=== PATIENT | male | born 1975 | race Caucasian/White ===

== ENCOUNTER 2016-10-03 00:48 | Emergency (ER) | payer SELFPAY ==
--- NOTE | ~2016-10-03 | ER ---
PATIENT'S NAME: ROSY IRAHETA [facility] AGE: 41 Y [address] ROOM: [place] [address] LOCATION: [facility] ADMIT DATE: 10/03/2016 ER/Outpatient Report DISCHARGE DATE: 10/03/2016 FAMILY PHYSICIAN: PHYSICIAN, NO ATTENDING PHYSICIAN: Kaela Lucia HISTORY OF PRESENT ILLNESS: A 41-year-old male who is right-hand dominant, who presents with left hand middle finger dislocation. He was seen at another hospital and was sent here for Dr. Dias for finger dislocation reduction. The patient says he has some tingling and some pain at the joint which is the PIP of the 3rd finger but no other complaints. He has intact sensation. He did this by tripping and he put his hand out to stop him and he sort of jammed it onto the patio railing. This happened about 3 hours ago. No other complaints at this time. PAST MEDICAL HISTORY: Includes hypertension. SURGICAL HISTORY: None. SOCIAL HISTORY: He smokes 4 ciggies a day. Occasional alcohol. No drug use. MEDICATIONS: None. ALLERGIES: NONE. REVIEW OF SYSTEMS: Reviewed by me and negative with the exception of those discussed in HPI. PHYSICAL EXAMINATION: VITAL SIGNS: The patient is 6 feet 1 inch, he weighs 137 kilograms, blood pressure 188/104, heart rate 100, respiratory rate 18, temperature is 99, sats are 96%. GENERAL: The patient is alert and oriented x4. He is in no acute distress. Well appearing. EXTREMITIES: His left wrist and left forearm was in a splint, so I removed it. His PIP, he is unable to flex and he held it in sort of an extended position. It is obviously dislocated. There is some mild swelling and some mild tenderness on palpation. EMERGENCY ROOM COURSE: PATIENT'S NAME: ROSY IRAHETA [facility] AGE: 41 Y [address] ROOM: [place] [address] LOCATION: [facility] ADMIT DATE: 10/03/2016 ER/Outpatient Report DISCHARGE DATE: 10/03/2016 FAMILY PHYSICIAN: PHYSICIAN, MYA ATTENDING PHYSICIAN: Kaela Lucia I did a digital block and Dr. Dias came down to reduce his finger and put it in a splint, laura-taped it and put it in a splint. He was wrote a script for some pain medications and he is told to follow up appropriately. He understands reasons to come back to the ER sooner. IMPRESSION: Finger dislocation. MD BUBBA PEREZ/dhiraj /[id number] d: 10/03/1641 t: 10/05/161952, OUTPATIENT REPORT
--- NOTE | ~2016-10-03 | OR ---
PATIENT'S NAME: ROSY IRAHETA [facility] AGE: 41 Y [address] ROOM: [place], [place] [address] LOCATION: [facility] ADMIT DATE: 10/03/2016 OR/Procedure Report DISCHARGE DATE: 10/03/2016 FAMILY PHYSICIAN: PHYSICIAN, NO ATTENDING PHYSICIAN: Kaela Lucia SURGEON: Issa Pepe DO PEARL MAKER: DATE OF PROCEDURE: 10/03/2016 ER CONSULTATION AND PROCEDURE NOTE CHIEF COMPLAINT: Left nondominant hand pain. The patient had injury to his left nondominant hand sustaining a dislocation at the PIP joint of his left middle finger. There was also a small fracture seen on lateral view at the proximal portion of the middle phalanx of his index finger. There was also noted to be some old remnants of foreign bodies near his index finger, near the MCP at the distal portion of the metacarpal and the proximal portion of the proximal phalanx. There were no wounds or open fractures. He had been seen at the ER in [place] by a nurse practitioner and referred here. Dr. Kaela Lucia was the ER doctor who evaluated him and placed a digital nerve block to the left middle finger. The patient had been well anesthetized. We discussed that this was his only isolated injury with dislocation at the proximal phalanx with dorsal dislocation. He did state he had some tingling in his hand prior to the block. However, neurovascular exam could not be performed due to nerve block performed by ER doc. He assured me that the metallic foreign bodies were nothing new and does not fit this mechanism. He understands that volar plate can block reduction and there can be collateral ligament injuries. He understands we will attempt reduction and then place him in a splint with laura taping for 3 to 6 weeks. He understands the risk of fracture, neurovascular injury, tendon injury, potential to form a swan-neck deformity, potential for stiffness at the joint, posttraumatic arthritis. During the process of potential reduction, he can end up with an open fracture or unreducible and have to be sent to a hand specialist. His mother was present. He understands the risks, benefits, and potential complications. After verbal consent, the patient had already been anesthetized, the middle phalanx was extended at the PIP joint and slight traction allowed simple reduction. There were no complications and anatomic reduction achieved. He was placed in a splint. He did have some slight swelling and tenderness over the middle phalanx of the index finger where a small condylar fracture was seen at the PIP joint of the index finger. These were placed in a splint. We will keep him in a splint for 2 weeks and then likely continue laura taping for 3 to 6 weeks. Post x-rays confirmed anatomic reduction without fracture PATIENT'S NAME: ROSY IRAHETA [facility] AGE: 41 Y [address] ROOM: [place] [address] LOCATION: [facility] ADMIT DATE: 10/03/2016 OR/Procedure Report DISCHARGE DATE: 10/03/2016 FAMILY PHYSICIAN: PHYSICIAN, NO ATTENDING PHYSICIAN: Kaela Lucia complication. Complications none. ISSA PEPE DO PH/modl /[id number] d: 10/03/1608 t: 10/04/16 1532, OPERATIVE SUMMARY
== END 2016-10-03 04:11 | disposition disaster alternative care site (69) ==
LOC: GACC 00:48
PROC: 0RSXXZZ Reposition Left Finger Phalangeal Joint, External Approach (ICD-10-PCS; principal; 2016-10-03)
DX: S63.253A Unspecified dislocation of left middle finger, initial encounter (principal); I10 Essential (primary) hypertension; F17.210 Nicotine dependence, cigarettes, uncomplicated; W23.0XXA Caught, crushed, jammed, or pinched between moving objects, initial encounter